=== PATIENT | female | born 1945 | race Caucasian/White ===

== ENCOUNTER → 2023-11-21 12:19 | Outpatient (REF) | payer OTHER, SELFPAY | LOC: RAD 12:19 | PROVIDERS: ATTENDING PHYSICIAN Family Medicine | DX: M79.671 Pain in right foot (principal) | CPT/HCPCS: 73630 ==

== ENCOUNTER → 2024-06-05 09:43 | Outpatient (REF) | payer OTHER, SELFPAY | LOC: WDC 09:43 | PROVIDERS: ATTENDING PHYSICIAN Physician Assistant Medical; FAMILY PHYSICIAN Family Medicine | DX: M16.0 Bilateral primary osteoarthritis of hip (principal); R93.7 Abnormal findings on diagnostic imaging of other parts of musculoskeletal system; N64.4 Mastodynia; M85.88 Other specified disorders of bone density and structure, other site; Z78.0 Asymptomatic menopausal state | CPT/HCPCS: 76642; 77062; 77066; 77080 ==

== ENCOUNTER → 2024-06-26 12:50 | Outpatient (REF) | payer OTHER, SELFPAY | LOC: RAD 12:50 | PROVIDERS: ATTENDING PHYSICIAN Physician Assistant Medical; FAMILY PHYSICIAN Family Medicine | DX: N64.4 Mastodynia (principal) | CPT/HCPCS: 76830; 76856 ==

== ENCOUNTER → 2025-06-04 15:01 | Outpatient (REF) | payer OTHER, SELFPAY | LOC: RAD 15:01 | PROVIDERS: ATTENDING PHYSICIAN Student in an Organized Health Care Education/Training Program; FAMILY PHYSICIAN Family Medicine | DX: I80.03 Phlebitis and thrombophlebitis of superficial vessels of lower extremities, bilateral (principal) | CPT/HCPCS: 93970 ==

== ENCOUNTER → 2025-06-11 14:36 | Outpatient (REF) | payer OTHER, SELFPAY | LOC: HWWDC 14:36 | PROVIDERS: ATTENDING PHYSICIAN Family Medicine | DX: Z12.31 Encounter for screening mammogram for malignant neoplasm of breast (principal) | CPT/HCPCS: 77063; 77067 ==

== ENCOUNTER 2025-07-01 06:53 | Day surgery (SDC) | payer OTHER, SELFPAY ==
[2025-06-08 11:49] LABS: Hematocrit 39.0 % (37.0-47.0); Hemoglobin 12.8 g/dL (12.0-16.0); Mean Corp Hgb Conc. 32.8 g/dL (33.0-37.0); Mean Corpuscular Volume 92.2 fL (81.0-99.0); Platelet Count 291 10^3/uL (130-400); Red Cell Dist. Width 12.7 % (11.5-14.5)
[2025-06-08 12:48] LABS: ALT (SGPT) 37 U/L (0-35); AST (SGOT) 30 U/L (14-36); Albumin 4.0 g/dl (3.5-5.0); Alkaline Phosphatase 57 U/L (38-126); Blood Urea Nitrogen 14 mg/dl (7-17); Calcium 9.1 mg/dl (8.4-10.2); Carbon Dioxide 28 mmol/L (22-30); Chloride 107 mmol/L (98-107); Glucose 95 mg/dl (70-99); Potassium 4.1 mmol/L (3.5-5.1); Sodium 141 mmol/L (135-145); Total Protein 6.6 g/dl (6.3-8.2); eGFR > 60.00
[2025-06-08 12:54] LABS: Glycohemoglobin (HgbA1c) 5.7 % (4.0-5.9)
[2025-06-08 14:03] VITALS: BMI 24.3
[2025-06-08 16:37] VITALS: BMI 24.3
--- NOTE | 2025-06-09 09:28 | VNURNOTE ---
VN liaison rec'ed info that pt Same Day surgery and ordered HH x 2 weeks post op per JONATAN [place] Liaison called pt, no answer, left message with contact #. Referral placed in [facility].
--- NOTE | 2025-06-29 12:09 | CM ---
manager ent reached out to patient on 06/08/25 and 06/29/25 to review demographics, and review up coming same day surgery with Dr. Cook for Left total hip, per notes plan patient to return to home with VN for 2 weeks as patient does not have
transportation to outpatient therapy appointments, another message for patient.
--- NOTE | 2025-06-30 11:26 | CM ---
Orthopedic Case Management Assessment
Demographics: Confirmed, Shyam Archer in [place].
Living situation: Patient lives alone in a 2 story home with 3 steps to enter, daughter to stay with patient after surgery.
Support Person Post Operatively: daughter
History of
VN: No
SNF: No
Outpatient: Patient has set up physical therapy at the [facility] for 07/06/25. (Patient also told PA that she did not have transportation to outpatient PT and would need home care, referral sent to [facility]).
Has patient purchased required equipment: Yes, cane, 2 walkers, cushion, 2 raised toilet seats.
PCP: Dr Jeevan Galloway
Pharmacy: [facility] on [facility]
Post Operative Discharge Plan: Patient is scheduled for same day surgery with Dr. Cook Left total hip, 07/01/25, patient reports that her daughter will assist and stay with patient after surgery, patient is aware that [facility] will be at patient's
home with PT and nursing, patient states that she set up outpatient physical therapy at [facility] for 07/06/25. manager [employer] database also received a message that patient may need extended home care due to issues with
transportation to outpatient therapy.
[2025-07-01] VITALS (13 sets, daily range): BP systolic 92–137; BP diastolic 52–81; PULSE 77; O2SAT 95
[2025-07-01] MEDS: CELEBREX 200 MG PO (07:52)
[2025-07-01] MEDS: TYLENOL 650 MG PO (07:52)
[2025-07-01] MEDS: NORMOSOL-R/PLASMALYTE-A 1000 IV (08:03)
--- NOTE | 2025-07-01 08:50 | W.DS.TRANS ---
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
-
Discharge Instructions:
Sleep Apnea Risk Low
Discharge Diagnosis/Procedures Left hip OA s/p left AI w/ Dr Cook 07/01/25
Diet Other diet
Additional Diets Diabetic carb controlled x1 week for wound
healing/infection prevention.
Adequate hydration, minimize opioids, and wear
TEDs to prevent low blood pressure/dizziness.
Activity As tolerated,With Walker
Driving Restrictions Not until seen by your Dr
Bathing Restrictions OK to Shower
Other Services PT,VN
Wound Care Dressing to be removed 1 week post-surgery.
Instructions:
Stand-Alone Forms: SDS Total Hip and Knee D/C
Changes to Home Medications: Yes
Discharge Medications:
DC Medications w/original date entered in [email or web address]
glucosam 750 mg-chondroi 100 mg-hyalur 1.65 mg-CF borate 108 mg tablet (Move Free Dotspin) 1 ea PO DAILY Supplement 04/11/21
Held on 07/01/25. Instructions: Resume on 07/09/25.
magnesium oxide 250 mg PO HS PRN Electrolyte Repletion 04/11/21
multivitamin 1 ea PO DAILY Supplement 04/11/21
Held on 07/01/25. Instructions: Resume on 07/09/25.
simvastatin 20 mg tablet 20 mg PO DAILY High cholesterol ##0 04/11/21
Cyanocobalamin (Vitamin B-12) [Vitamin B12] 5,000 mcg PO DAILY Supplement 04/14/21
elderberry fruit 460 mg-elderberry flower 115 mg capsule 1 ea PO DAILY herbal 04/14/21
Held on 07/01/25. Instructions: Resume on 07/09/25.
Collagen Peptide Gummy 1 gum PO DAILY 06/04/25
Held on 07/01/25. Instructions: Resume on 07/09/25.
Curcumin Suellen Gummy 1 gum PO DAILY 06/04/25
Held on 07/01/25. Instructions: Resume on 07/09/25.
Probiotic 1 dose PO DAILY 06/04/25
Vitamin D3 1 dose PO DAILY 06/04/25
calcium citrate 1 dose PO DAILY 06/04/25
coenzyme Q10 100 mg capsule 100 mg PO DAILY 06/04/25
Held on 07/01/25. Instructions: Resume on 07/09/25.
iron 1 dose PO DAILY 06/04/25
melatonin 1 mg chewable tablet (Children's Melatonin) 1 mg PO HS PRN sleep 06/04/25
dexamethasone 4 mg tablet 4 mg PO BID Anti-inflammatory #7 tabs 06/08/25
famotidine 20 mg tablet (Pepcid) 20 mg PO HS #30 tabs 06/08/25
gabapentin 300 mg capsule 300 mg PO HS neuropathic pain/sleep #10 caps 06/08/25
meloxicam 15 mg tablet 15 mg PO DAILY #14 tabs 06/08/25
mupirocin 2 % topical ointment 1 applic intranasal BID #1 tube 06/08/25
ondansetron HCl 4 mg tablet 4 mg PO Q6H PRN nausea and vomiting #30 tabs 06/08/25
tramadol 50 mg tablet 50 - 100 mg (1 - 2 x 50 mg) PO Q6H PRN moderate-severe pain #30 tabs 06/08/25
acetaminophen 325 mg tablet (Tylenol) 650 mg (2 x 325 mg) PO QID #1 tab 07/01/25
aspirin 325 mg tablet 325 mg PO DAILY blood clot prevention #1 tab 07/01/25
docusate sodium 100 mg capsule (Colace) 100 mg PO BID stool softner #1 cap 07/01/25
magnesium hydroxide 400 mg/5 mL oral suspension (Milk of Magnesia) 30 ml PO HS PRN constipation #1 mL 07/01/25
sennosides 8.6 mg tablet (Senokot) 17.2 mg (2 x 8.6 mg) PO BID laxative #2 tabs 07/01/25
tramadol 50 mg tablet 50 mg PO BID pain #0 tabs 07/01/25
Home Medication Changes
dexamethasone 4 mg tablet 4 mg PO BID Anti-inflammatory #7 tabs 06/08/25
famotidine 20 mg tablet (Pepcid) 20 mg PO HS #30 tabs 06/08/25
gabapentin 300 mg capsule 300 mg PO HS neuropathic pain/sleep #10 caps 06/08/25
meloxicam 15 mg tablet 15 mg PO DAILY #14 tabs 06/08/25
mupirocin 2 % topical ointment 1 applic intranasal BID #1 tube 06/08/25
ondansetron HCl 4 mg tablet 4 mg PO Q6H PRN nausea and vomiting #30 tabs 06/08/25
tramadol 50 mg tablet 50 - 100 mg (1 - 2 x 50 mg) PO Q6H PRN moderate-severe pain #30 tabs 06/08/25
acetaminophen 325 mg tablet (Tylenol) 650 mg (2 x 325 mg) PO QID #1 tab 07/01/25
aspirin 325 mg tablet 325 mg PO DAILY blood clot prevention #1 tab 07/01/25
docusate sodium 100 mg capsule (Colace) 100 mg PO BID stool softner #1 cap 07/01/25
magnesium hydroxide 400 mg/5 mL oral suspension (Milk of Magnesia) 30 ml PO HS PRN constipation #1 mL 07/01/25
sennosides 8.6 mg tablet (Senokot) 17.2 mg (2 x 8.6 mg) PO BID laxative #2 tabs 07/01/25
tramadol 50 mg tablet 50 mg PO BID pain #0 tabs 07/01/25
Pending Results: No
[2025-07-01] MEDS: ROXICODONE 5 MG PO (12:18)
[2025-07-01] MEDS: ANCEF 5 IV (12:56)
== END 2025-07-01 13:55 | disposition home health service (06) ==
LOC: SDS 06:53
PROVIDERS: ATTENDING PHYSICIAN Orthopaedic Surgery; FAMILY PHYSICIAN Family Medicine; OTHER PHYSICIAN Physician Assistant
DX: M16.12 Unilateral primary osteoarthritis, left hip (principal)
CPT/HCPCS: 27130; C1776; C1713; 36415; 73502; 80053; 83036; 85027; 87070; 93005; 97116; 97162